=== PATIENT | male | born 1960 | race Two or more races ===

== ENCOUNTER 2018-09-21 14:43 | Emergency (ER) | payer MEDICAID ==
[~2018-09-21] VITALS: Ht 177.8 cm; Wt 73.0 kg
[2018-09-21 18:57] LABS: BASOPHILS % 0.4 % (0.0-2.0); EOSINOPHILS % 0.5 % (0.0-5.0); HEMATOCRIT. 37.1 % (42.0-52.0); HEMOGLOBIN. 12.8 g/dL (14.0-18.0); LYMPHOCYTES % 33.6 % (20.0-50.0); MEAN CORPUSCULAR HEMOGLOBIN 29.9 pg (28.0-32.0); MEAN CORPUSCULAR VOLUME 86.7 fL (80.0-94.0); MEAN PLATELET VOLUME 8.2 fl (7.4-10.4); MONOCYTES % 9.9 % (2.0-8.0); NEUTROPHILS % 55.6 % (40.0-76.0); PLATELET 163 x1000/uL (130-400); RED BLOOD CELL COUNT 4.28 mill/uL (4.7-6.1); RED CELL DISTRIBUTION WIDTH 12.3 % (11.6-14.6)
[2018-09-21] MEDS ORDERED: DIPHENHYDRAMINE 50MG/ML VIAL IV ONE (19:00)
[2018-09-21] MEDS ORDERED: METOCLOPRAMIDE HCL 10MG/2ML VIAL IV ONE (19:00)
[2018-09-21 19:02] LABS: CHLORIDE 106 mEq/L (98-107)
[2018-09-21 19:03] LABS: PROTHROMBIN TIME 10.7 sec (9.6-11.0)
[2018-09-21] MEDS ORDERED: IOHEXOL-350 100 ML BOTTLE ONE (22:38)
[2018-09-22 00:52] VITALS: BP 101/59
== END 2018-09-22 00:54 | disposition home or self-care (01) ==
LOC: ER 14:43
DX: R51 Headache (principal); R13.10 Dysphagia, unspecified; I10 Essential (primary) hypertension; Z87.820 Personal history of traumatic brain injury
CPT/HCPCS: 36415; 70450; 70496; 70498; 80053; 85025; 85610; 96374; 96375; 99284; J1200; J2765; Q9967